=== PATIENT | female | born 1955 | race Hispanic/Latino ===

== ENCOUNTER 2018-06-29 09:15 | Outpatient (CLI) | payer OTHER ==
--- NOTE | 2018-06-29 12:09 | MMO ---
BILATERAL SCREENING MAMMOGRAMS: 06/29/2018 HISTORY: A 62-year-old patient presenting for screening mammography. This will serve as the patient's baselin e screening mammogram. COMPARISON: No prior studies are available for comparison. The patient does note prior left breast biopsy many y ears ago. FINDINGS: This study is interpreted with the assistance of computer aided detection. There is a heterogeneously dense parenchymal pattern, which may lower the sensitivity of mammography. A few punctate, benign appearing calcifications are seen in each breast. No dominant mass or suspi cious grouping of microcalcification is seen in either breast. IMPRESSION: BI-RADS Category 2-Benign findings. Routine annual mammographic screening is recommended. POS: [facility]
== END 2018-06-29 09:16 | disposition home or self-care (01) ==
LOC: SCSMAMMO 09:15
PROVIDERS: ATTEND Family Medicine
DX: Z12.31 Encounter for screening mammogram for malignant neoplasm of breast (principal)
CPT/HCPCS: 77067